=== PATIENT | female | born 1995 | race Caucasian/White ===

== ENCOUNTER 2021-01-05 19:30 | Emergency (ER) | payer MEDICAID ==
[~2021-01-05] VITALS: Ht 149.9 cm; Wt 59.0 kg
--- NOTE | 2021-01-05 19:32 | NUR ---
ER[facility] PT AMBULATED TO BED 12
[2021-01-05 19:33] VITALS: BP 111/71
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
--- NOTE | 2021-01-05 20:39 | NUR ---
Dr. Zaragoza examining patient.
--- NOTE | 2021-01-05 21:48 | NUR ---
PT TAKEN TO CT
[2021-01-05] MEDS ORDERED: ACETAMINOPHEN 325 MG TAB PO ONE (22:05)
--- NOTE | 2021-01-05 22:05 | NUR ---
PT RETURN FROM CT
[2021-01-05 23:27] VITALS: BP 125/75
== END 2021-01-05 23:27 | disposition home or self-care (01) ==
LOC: MED 19:30
DX: M54.2 Cervicalgia (principal); R51.9 Headache, unspecified; V89.2XXA Person injured in unspecified motor-vehicle accident, traffic, initial encounter; Y93.89 Activity, other specified; Y92.89 Other specified places as the place of occurrence of the external cause; Y99.8 Other external cause status
CPT/HCPCS: 70450; 72125; 81025; 99285